=== PATIENT | male | born 1960 | race Caucasian/White ===

== ENCOUNTER → 2019-01-11 | Emergency (ER) | payer OTHER ==
[~2019-01-11] VITALS: Ht 182.9 cm; Wt 67.9 kg
[~2019-01-11] MED LIST: ACET-3068 PO; HYDROcodone/acetaminophen 10/325mg tab PO ONE
--- NOTE | 2019-01-11 12:38 | NUR ---
Call placed to Dr. Obi Reddy (pt's neuro surgeon) at [facility]- . Message was left for the via answering service.
[2019-01-11 14:43] VITALS: BP 128/82
== END | disposition home or self-care (01) ==
LOC: ER 11:15
DX: G89.18 Other acute postprocedural pain (principal); R51 Headache; F17.200 Nicotine dependence, unspecified, uncomplicated; Z88.8 Allergy status to other drugs, medicaments and biological substances; Z79.899 Other long term (current) drug therapy; Z98.890 Other specified postprocedural states
CPT/HCPCS: 70450; 99284

== ENCOUNTER 2022-04-27 12:37 | Inpatient (IN) | payer MEDICARE ==
[~2022-04-27] VITALS: Ht 182.9 cm; Wt 59.1 kg
[2022-04-27 14:23] LABS: BASOPHILS % (AUTO) 0.1 % (0-1); EOSINOPHILS % (AUTO) 0 % (0-6); HEMATOCRIT 30.6 % (42.0-52.0); HEMOGLOBIN 10.3 g/dl (14.0-17.9); LYMPHOCYTES # (AUTO) 0.4 X10'3 (1.1-4.8); LYMPHOCYTES % (AUTO) 2.6 % (21-51); MEAN CORPUSCULAR HEMOGLOBIN 28.9 PG (27.0-31.0); MEAN CORPUSCULAR HGB CONC 33.6 g/dL (33.0-36.5); MEAN CORPUSCULAR VOLUME 86.2 FL (78-98); MEAN PLATELET VOLUME 6.6 FL (7.4-10.4); MONOCYTES # (AUTO) 1.4 X10'3 (0-0.9); MONOCYTES % (AUTO) 9.6 % (2-12); NEUTROPHILS # (AUTO) 12.5 X10'3 (1.8-7.7); NEUTROPHILS % (AUTO) 87.7 % (42-75); PLATELET COUNT 490 X10'3 (140-440); RED BLOOD COUNT 3.56 X10'6 (4.70-6.10); RED CELL DISTRIBUTION WIDTH 15.2 % (11.5-14.5); WHITE BLOOD COUNT 14.2 X10'3 (4.5-11.0)
[2022-04-27 14:39] LABS: ALANINE AMINOTRANSFERASE 23 U/L (12-78); ALBUMIN/GLOBULIN RATIO 0.4 (1.1-1.5); ALKALINE PHOSPHATASE 214 IU/L (46-116); ANION GAP 7 (8-16); ASPARTATE AMINO TRANSFERASE 33 U/L (10-37); BILIRUBIN,TOTAL 0.3 MG/DL (0.1-1.0); BLOOD UREA NITROGEN 19 MG/DL (7-18); BUN/CREATININE RATIO 17.8 (5.4-32.0); CHLORIDE 97 MMOL/L (99-107); CREATININE 1.07 MG/DL (0.60-1.10); GLUCOSE 141 MG/DL (70-104); POTASSIUM 3.7 MMOL/L (3.5-5.1); SODIUM 135 MMOL/L (135-145); TOTAL CARBON DIOXIDE 31.5 MMOL/L (24-32); TOTAL PROTEIN 6.9 G/DL (6.4-8.2); eGFR 70 ML/MIN
[2022-04-27] MEDS ORDERED: piperacillin/tazo 3.375gm/50ml 50 ML IV ONE (15:20)
[2022-04-27] MEDS ORDERED: morphine 2 MG/ML inj. syringe IV PRN ×2 (17:35)
[2022-04-27] MEDS ORDERED: HYDROcodone/acetaminophen 5mg/325mg tablet PO PRN (17:35)
[2022-04-27] MEDS ORDERED: mag hydrox/Alum hydrox/simeth 30ml oral suspension PO PRN (17:35)
[2022-04-27] MEDS ORDERED: magnesium hydroxide 30ml (MOM) UD suspension PO PRN (17:35)
[2022-04-27] MEDS ORDERED: acetaminophen 325mg tablet PO PRN ×2 (17:35)
[2022-04-27] MEDS ORDERED: ondansetron/PF 4mg/2ml inj IV PRN (17:35)
[2022-04-27] MEDS ORDERED: enoxaparin 40mg/0.4ml syringe SQ SCH (20:00)
[2022-04-27] MEDS: vancomycin/NS 1 GM ADD-VANTAGE 250 ML IV SCH (20:11)
[2022-04-27] MEDS: docusate sod 100mg capsule PO SCH (20:16)
--- NOTE | 2022-04-27 21:03 | NUR ---
Report taken from ER Nurse Florecita, given a chance to ask questions and have all concerns addressed. Nurse reported that the Med rec for the patient has not been completed at this time and unsure if patient takes any home medications. Room is ready for patient at this time.
[2022-04-27 21:45] VITALS: BP 136/73
[2022-04-27] MEDS ORDERED: HYDR-3972 PO (21:53)
[2022-04-27] MEDS: HYDROcodone/acetaminophen 10/325mg tab PO PRN (21:55)
[2022-04-28] MEDS: piperacillin/tazo 4.5gm/100ml 100 ML IV SCH ×2 (01:28→09:31)
[2022-04-28] MEDS: HYDROcodone/acetaminophen 10/325mg tab PO PRN ×2 (04:46→09:31)
[2022-04-28 04:58] LABS: BASOPHILS % (AUTO) 0.1 % (0-1); EOSINOPHILS % (AUTO) 0.1 % (0-6); HEMOGLOBIN 9.7 g/dl (14.0-17.9); LYMPHOCYTES # (AUTO) 0.6 X10'3 (1.1-4.8); LYMPHOCYTES % (AUTO) 4.9 % (21-51); MEAN CORPUSCULAR HEMOGLOBIN 28.8 PG (27.0-31.0); MEAN CORPUSCULAR HGB CONC 33.3 g/dL (33.0-36.5); MEAN CORPUSCULAR VOLUME 86.4 FL (78-98); MEAN PLATELET VOLUME 6.7 FL (7.4-10.4); MONOCYTES # (AUTO) 1.4 X10'3 (0-0.9); MONOCYTES % (AUTO) 12.2 % (2-12); NEUTROPHILS # (AUTO) 9.4 X10'3 (1.8-7.7); NEUTROPHILS % (AUTO) 82.7 % (42-75); PLATELET COUNT 540 X10'3 (140-440); RED BLOOD COUNT 3.36 X10'6 (4.70-6.10); RED CELL DISTRIBUTION WIDTH 15.2 % (11.5-14.5); WHITE BLOOD COUNT 11.3 X10'3 (4.5-11.0)
[2022-04-28 05:23] LABS: ALBUMIN 1.9 G/DL (3.4-5.0); ANION GAP 10 (8-16); BLOOD UREA NITROGEN 17 MG/DL (7-18); BUN/CREATININE RATIO 20.2 (5.4-32.0); CHLORIDE 97 MMOL/L (99-107); CREATININE 0.84 MG/DL (0.60-1.10); GLUCOSE 97 MG/DL (70-104); SODIUM 139 MMOL/L (135-145); eGFR > 90 ML/MIN
[2022-04-28 06:00] VITALS: BP 112/71
--- NOTE | 2022-04-28 06:30 | NUR ---
Patient in room [facility] 4010. I have received report from OLMAN Dejesus and had the opportunity to ask questions and assume patient care.
[2022-04-28] MEDS ORDERED: HYDR-3972 PO (08:56)
[2022-04-28] MEDS: docusate sod 100mg capsule PO SCH (09:30)
[2022-04-28] MEDS: vancomycin/NS 1 GM ADD-VANTAGE 250 ML IV SCH (09:31)
[2022-04-28 10:00] VITALS: BP 113/65
[2022-04-28] MEDS ORDERED: AMOX-117 PO (10:57)
--- NOTE | 2022-04-28 13:30 | NUR ---
Pt discharged to home with all belongings, in private vehicle, accompanied by . Discharge instructions and medications reviewed. New prescriptions called to [facility] on [address]. Pt instructed to follow up with Dr Perry, office number provided. Pt instructed to seek medical attention should symptoms return or worsen. Pt states understanding and willingness to comply with discharge instructions. IV's DC'd, cannula intact. Pt escorted to front lobby via wheelchair by PCT.
[2022-04-29] MEDS ORDERED: VANCOMYCIN LEVEL IV ONE (07:30)
== END 2022-04-28 13:30 | disposition home or self-care (01) | DRG 871 ==
LOC: ER 12:37 → ED HOLD 17:38 → ORTHO 4S 21:56
PROVIDERS: ADMIT Internal Medicine; ATTEND Internal Medicine
DX: A41.9 Sepsis, unspecified organism (principal); J18.9 Pneumonia, unspecified organism; C79.89 Secondary malignant neoplasm of other specified sites; C34.90 Malignant neoplasm of unspecified part of unspecified bronchus or lung; Z20.822 Contact with and (suspected) exposure to COVID-19; D63.0 Anemia in neoplastic disease; Z87.891 Personal history of nicotine dependence; Z88.8 Allergy status to other drugs, medicaments and biological substances; Z80.9 Family history of malignant neoplasm, unspecified
CPT/HCPCS: 36415; 71045; 71250; 80048; 80053; 83880; 84145; 84484; 85025; 87081; 87635; 96365; 99285; C9803; G0378; J1650; J2543; J3370